=== PATIENT | female | born 1970 | race African-American/Black ===

== ENCOUNTER → 2018-08-31 11:09 | Outpatient (CLI) | payer OTHER, SELFPAY ==
--- NOTE | 2018-08-31 | DI.RAD.S_ITS ---
PROCEDURE: FL ARTHROGRAM SHOULDER RT INDICATIONS: RIGHT SHOULDER PAIN TECHNIQUE: The indications, alternatives, benefits, risks, and complications of the procedure were explained to the patient. Written informed consent was obtained and placed in the chart. The shoulder was examined fluoroscopically and a site for needle placement chosen for entry into the glenohumeral joint from an anterior approach. The skin was prepped and draped in a sterile fashion, and 1% lidocaine infiltrated from skin down to joint capsule. A spinal needle was inserted into the glenohumeral joint, and a small amount of iodinated contrast media injected to confirm intra-articular placement of the needle tip. This was followed by approximately 12 mL dilute solution of a gadolinium containing MR contrast agent. The needle was removed and a dressing was applied. The patient was given postprocedural instructions and sent to the MR suite for MR imaging. FINDINGS: A single fluoroscopic spot image demonstrates intra-articular location of injected iodinated contrast. IMPRESSION: Successful fluoroscopically guided administration of dilute Gadolinium solution into the shoulder joint for MR arthrogram. Dictated by: Teofilo Das M.D. on 08/31/2018 at 13:04 Approved by: Teofilo Das M.D. on 08/31/2018 at 13:04
--- NOTE | 2018-08-31 | DI.MRI.S_ITS ---
PROCEDURE: MR SHOULDER RT W CON INDICATIONS: RT SHOULDER PAIN TECHNIQUE: After the administration of 12 mL of dilute intra-articular Gadolinium contrast, oblique coronal T1 and T2 spin echo with fat saturation, oblique sagittal T1 spin echo with and without fat saturation, oblique sagittal T2 fast spin echo with fat saturation, axial T1 spin echo with fat saturation through the shoulder. COMPARISON: [facility], MR, SHOULDER WITH CONTRAST, 08/16/2017, 14:01. FINDINGS: Image quality: Diagnostic. Rotator cuff: No full-thickness or high-grade partial-thickness tear of the rotator cuff is identified. There is minimal supraspinatus and infraspinatus tendinopathy without significant tendon. There is a low-grade partial-thickness tear identified near the myotendinous junction along the superior fibers of the distal subscapularis tendon with focal tendinopathy. Subscapular tendon is otherwise unremarkable. The teres minor tendon is intact. There is no significant atrophy of the rotator cuff muscles. Bones and bursae: No acute fracture or dislocation is present. There are no suspicious osseous lesions. There may be early degenerative changes of the glenohumeral joint, best appreciated on the posterior margin of the greater tuberosity of the humeral head. Mild posterior subluxation of the humeral head with respect to the glenoid is present. There is adequate distention of the glenohumeral joint with the injected contrast. No definite loose intra-articular joint bodies are appreciated. None of the injected contrast extends into the subacromial subdeltoid bursa to suggest nonvisualized full-thickness tear of the rotator cuff. Moderate degenerative changes of the acromioclavicular joint are present. There is mild downsloping of the lateral acromion. Capsule and soft tissues: There is a small posterosuperior labral tear identified at that extends from the 12 o'clock position to the 2 o'clock position. The labrum is otherwise unremarkable. The long head of the biceps tendon is normally positioned within the bicipital groove and appears to be intact and is otherwise unremarkable. The superior, middle, and inferior glenohumeral ligaments are intact. IMPRESSION: 1. Low-grade intrasubstance partial thickness tearing at the superior subscapularis myotendinous junction with corresponding mild focal tendinopathy. No full thickness tear of the rotator cuff. 2. Minimal supraspinatus and infraspinatus tendinopathy. 3. Small posterosuperior labral tear without definite involvement of the biceps anchor. 4. Moderate degenerative changes of the acromioclavicular joint. Dictated by: Vito Rey M.D. on 08/31/2018 at 14:35 Approved by: Vito Rey M.D. on 08/31/2018 at 14:39
== END ==
PROVIDERS: Visit Provider Physician Assistant
DX: M25.511 Pain in right shoulder (principal); M75.111 Incomplete rotator cuff tear or rupture of right shoulder, not specified as traumatic; M19.011 Primary osteoarthritis, right shoulder; S43.491A Other sprain of right shoulder joint, initial encounter
CPT/HCPCS: 23350; 73040; 73222; 77002

== ENCOUNTER → 2019-05-11 11:42 | Outpatient (CLI) | payer OTHER, SELFPAY ==
--- NOTE | 2019-05-11 | DI.MRI.S_ITS ---
PROCEDURE: MR ANKLE RT WO CON INDICATIONS: RIGHT ANKLE PAIN TECHNIQUE: Noncontrast sagittal T1 spin echo and T2 fast spin echo with fat saturation, axial proton density fast spin echo and T2 fast spin echo with fat saturation, coronal T1 spin echo and T2 fast spin echo with fat saturation through the ankle/hindfoot. COMPARISON: None. FINDINGS: Image quality: Diagnostic. Bones and joints: No acute fracture, dislocation, or suspicious osseous lesion is identified involving the osseous structures of the right midfoot or hindfoot. Ankle mortise is well-maintained. There are no osteochondral defects involving the tibial plafond toward the talar dome. There mild degenerative changes of the talonavicular joint. No significant joint effusions are appreciated. Medial structures: The deltoid and spring ligaments are intact. Thickening involving the superomedial band of the spring ligament is present at the plantar components of the spring ligament are intact. The tibialis posterior, flexor digitorum longus, and flexor hallucis longus tendons are intact. Small fluid is contained within their corresponding tendon sheaths. There is mild increased signal involving the distal aspect of the tibialis posterior tendon near the level of the navicular with overlying soft tissue edema. The posterior tibial nerve through the tarsal tunnel appears to be within normal limits. Lateral structures: The anterior and posterior distal tibiofibular ligaments are intact. The anterior and posterior talofibular ligaments are intact. The calcaneofibular ligament is also intact. The peroneus brevis and peroneus longus tendons are intact. However, there is minimal fluid identified within their corresponding tendon sheath along the posterior margin of the lateral malleolus. Slight increased signal is noted within the region of the sinus tarsi. Anterior structures: The tibialis anterior, extensor hallucis longus, and extensor digitorum longus tendons appear intact. The dorsal talonavicular ligament appears intact. Posterior and plantar structures: The Achilles tendon is intact, but demonstrates mild increased signal next insertion. The plantar fascia is within normal limits. IMPRESSION: 1. Mild peroneus longus tendinopathy with corresponding minimal tenosynovitis. 2. Probable scarring of the spring ligament. A superimposed acute sprain is difficult to exclude. No full-thickness tears. 3. Minimal tenosynovitis involving the peroneus longus and previous brevis tendons. 4. Mild distal Achilles tendinopathy. 5. Mild degenerative changes of the talonavicular joint. 6. Nonspecific increased signal within the sinus tarsi may be within normal limits. Please correlate clinically to exclude sinus tarsi syndrome. Dictated by: Vito Rey M.D. on 05/13/2019 at 10:07 Approved by: Vito Rey M.D. on 05/13/2019 at 10:24
== END ==
PROVIDERS: PCP Family Medicine; Visit Provider Family Medicine
DX: M25.571 Pain in right ankle and joints of right foot (principal); M67.971 Unspecified disorder of synovium and tendon, right ankle and foot
CPT/HCPCS: 73721

== ENCOUNTER → 2019-10-18 12:35 | Outpatient (CLI) | payer OTHER, SELFPAY ==
--- NOTE | 2019-10-18 | DI.US.S_ITS ---
ULTRASOUND OF RIGHT BREAST: 10/18/2019 CLINICAL: Diffuse left breast pain. Comparison is made to exams dated: 10/18/2019 mammogram - [facility], 09/09/2019 ultrasound, 06/14/2018 ultrasound, and 06/14/2018 mammogram - [facility]. Real-time ultrasound of the right breast was performed. Novoa scale images of the real-time examination were reviewed. No significant abnormalities were seen sonographically in the right breast. IMPRESSION: NEGATIVE There is no sonographic evidence of malignancy. There is no abnormality seen in the right axilla to correspond with the area of clinical concern and palpable abnormality indicated by triangular marker in the axilla, however, clinical followup is recommended for persistent or worsening symptoms. A 1 year screening mammogram is recommended. This exam was interpreted at Station ID: [id number]. Electronically Signed By: Rodrigue Mcdonald M.D. aty/:10/18/2019 14:26:31 letter sent: Normal Exam Ultrasound BI-RADS: 1 Negative
--- NOTE | 2019-10-18 | DI.MG.S_ITS ---
BILATERAL DIGITAL DIAGNOSTIC MAMMOGRAM 3D/2D: 10/18/2019 CLINICAL: Right breast pain. Left nipple pain. Comparison is made to exams dated: 06/14/2018 mammogram, 05/11/2017 mammogram, and 11/30/2016 mammogram - [facility]. The tissue of both breasts is heterogeneously dense. This may lower the sensitivity of mammography. No significant masses, calcifications, or other findings are seen in either breast. IMPRESSION: INCOMPLETE: NEEDS ADDITIONAL IMAGING EVALUATION There is no abnormality seen in the right axilla to correspond with the area of clinical concern, palpable abnormality, and pain indicated by triangular marker in the right axilla, however, ultrasound is recommended. There is no abnormality seen in the left breast to correspond with the area of clinical concern, palpable abnormality, and pain indicated by square marker in the sub-areolar depth, however, ultrasound is recommended. The recommended breast ultrasound is scheduled to immediately follow this examination. This exam was interpreted at Station ID: [id number]. NOTE: For mammograms, a report in lay terms will be sent to the patient. Approximately 15% of breast malignancies will not be visualized mammographically. In the management of a palpable breast mass, a negative mammogram must not discourage biopsy of a clinically suspicious lesion. Electronically Signed By: Rodrigue Mcdonald M.D. aty/:10/18/2019 13:41:10 ACR BI-RADS Category 0: Incomplete 3340F
--- NOTE | 2019-10-18 | DI.US.S_ITS ---
ULTRASOUND OF LEFT BREAST: 10/18/2019 CLINICAL: Focal left breast pain. Comparison is made to exams dated: 10/18/2019 mammogram - [facility], 09/09/2019 ultrasound, 06/14/2018 ultrasound, 06/14/2018 mammogram, 05/11/2017 mammogram, and 11/30/2016 mammogram - [facility]. Real-time ultrasound of the left breast was performed. Novoa scale images of the real-time examination were reviewed. No significant abnormalities were seen sonographically in the left breast. IMPRESSION: NEGATIVE There is no sonographic evidence of malignancy. There is no abnormality seen in the left breast to correspond with the area of clinical concern, palpable abnormality, and pain indicated by square marker in the sub-areolar depth, however, clinical followup is recommended for persistent or worsening symptoms. A 1 year screening mammogram is recommended. This exam was interpreted at Station ID: [id number]. Electronically Signed By: Rodrigue Mcdonald M.D. aty/:10/18/2019 14:25:12 letter sent: Normal Exam Ultrasound BI-RADS: 1 Negative
== END ==
PROVIDERS: PCP Internal Medicine; Referring Provider Internal Medicine; Visit Provider Internal Medicine
DX: R92.8 Other abnormal and inconclusive findings on diagnostic imaging of breast (principal); N64.4 Mastodynia
CPT/HCPCS: 76642; 77066; G0279

== ENCOUNTER → 2020-10-24 12:28 | Outpatient (CLI) | payer OTHER, SELFPAY ==
--- NOTE | 2020-10-24 12:30 | DI.MG.S_ITS ---
BILATERAL DIGITAL SCREENING MAMMOGRAM 3D/2D WITH CAD: 10/24/2020 CLINICAL: Routine screening. Family history of breast cancer. Comparison is made to exams dated: 10/18/2019 mammogram - [facility], 06/14/2018 mammogram, 05/11/2017 mammogram, and 11/30/2016 mammogram - [facility]. The tissue of both breasts is heterogeneously dense. This may lower the sensitivity of mammography. Current study was also evaluated with a Computer Aided Detection (CAD) system. No significant masses, calcifications, or other findings are seen in either breast. There has been no significant interval change. IMPRESSION: NEGATIVE There is no mammographic evidence of malignancy. A 1 year screening mammogram is recommended. This exam was interpreted at Station ID: [id number]. NOTE: For mammograms, a report in lay terms will be sent to the patient. Approximately 15% of breast malignancies will not be visualized mammographically. In the management of a palpable breast mass, a negative mammogram must not discourage biopsy of a clinically suspicious lesion. Electronically Signed By: Petros barlow/sahra:10/26/2020 08:53:56 letter sent: Normal Exam ACR BI-RADS Category 1: Negative 3341F
== END ==
PROVIDERS: PCP Internal Medicine; Referring Provider Internal Medicine; Visit Provider Internal Medicine
DX: Z12.31 Encounter for screening mammogram for malignant neoplasm of breast (principal); Z80.3 Family history of malignant neoplasm of breast
CPT/HCPCS: 77063; 77067

== ENCOUNTER → 2020-12-03 08:07 | Outpatient (CLI) | payer OTHER, SELFPAY ==
--- NOTE | 2020-12-03 | DI.MRI.S_ITS ---
PROCEDURE: MR CERVICAL SPINE WO CON INDICATIONS: Other disturbances of skin sensation TECHNIQUE: Noncontrast sagittal T1 spin echo and T2 fast spin echo, sagittal STIR, foraminal oblique sagittal T2 fast spin echo, and axial gradient echo or T2 fast spin echo through the cervical spine. COMPARISON: None. FINDINGS: Image quality: Excellent. Alignment and Curvature: There is normal bony alignment. Bone Marrow: Marrow demonstrates normal overall signal. Spinal Cord: Visualized spinal cord has normal size and signal. No cerebellar tonsillar herniation. Regional Soft Tissues: No paravertebral masses. Prevertebral soft tissues are normal in thickness. C2-C3: Normal appearance. C3-C4: Normal appearance. C4-C5: Normal appearance. C5-C6: Normal appearance. C6-C7: Normal appearance. C7-T1: Normal appearance. IMPRESSION: Unremarkable MRI of the cervical spine. No significant degenerative findings, spinal canal stenosis, or neural foraminal stenosis. Dictated by: David Saenz M.D. on 12/03/2020 at 9:40 Approved by: David Saenz M.D. on 12/03/2020 at 9:45
== END ==
PROVIDERS: PCP Internal Medicine; Referring Provider Internal Medicine; Visit Provider Internal Medicine
DX: R20.8 Other disturbances of skin sensation (principal)
CPT/HCPCS: 72141

== ENCOUNTER → 2021-08-02 11:20 | Outpatient (CLI) | payer OTHER, SELFPAY ==
[2021-08-02 14:09] LABS: COVID19 -Nasal RAPID Negative (Negative)
== END ==
PROVIDERS: PCP Internal Medicine; Visit Provider Nurse Practitioner Family
DX: Z20.822 Contact with and (suspected) exposure to COVID-19 (principal)
CPT/HCPCS: 87635

== ENCOUNTER 2021-08-03 07:54 | Day surgery (SDC) | payer OTHER, SELFPAY ==
[2021-08-03 08:25] VITALS: BP 125/80; PULSE 91; RESP 16; TEMP 36.7; O2SAT 100; BMI 40.0
[2021-08-03] MEDS: SODIUM CHLORIDE 0.9% 1,000 ML 100 ML IV (08:32)
--- NOTE | 2021-08-03 08:41 | PM.HP.1 ---
History of Present Illness History of Present Illness Date Patient Seen: 08/03/21 Time Patient Seen: 08:42 Chief complaint: SDC Patient History Family & Social History Social History: household members children Tobacco & Substance use: Smoking Status Never smoker alcohol intake current alcohol intake frequency a few times a month Substance Use Type does not use Meds Home Medications and Allergies Home Medications Medication Instructions Recorded Confirmed Type No Known Home Medications 08/03/21 08/03/21 History Allergies Allergy/AdvReac Type Severity Reaction Status Date / Time No Known Allergies Allergy Uncoded 08/03/21 08:09 Review of Systems Review of Systems ROS: Yes All systems reviewed with the patient and are negative except as otherwise documented Exam Vital Signs (past 8 hours): - 08/03/21 08:25 Temperature 98.0 F Pulse Rate 91 H Respiratory Rate 16 Blood Pressure 125/80 Pulse Oximetry 100 Oxygen Delivery Method Room Air Const General: cooperative and comfortable Orientation: alert HENMT Head: normocephalic Ears: external ears normal Nose: external nose normal Face and sinus: normal facial exam Mouth: oral mucosae normal Eyes General: appearance normal, both eyes and all related structures Neck Neck: normal visual inspection Chest Chest: normal inspection of the chest Resp Effort & Inspection: normal respiratory effort Cardio Rate: regular rate GI Inspection: normal to inspection Palpation: soft and No tender Auscultation: normal bowel sounds Skin General: no rashes or lesions noted and No jaundice Neuro General: patient alert and moves all extremities Cognition: normal cognition Speech: speech normal Extrem General: no pedal edema Psych Appearance: grossly normal Assessment & Plan Time Spent With Patient Critical Care time: I spent a total of [] minutes of critical care time on this patient's care today; this time is exclusive of procedural time.
--- NOTE | 2021-08-03 08:43 | PM.PREOP ---
Pre-operative Note COVID-19 COVID-19 status: Negative Result date/Date tested (Pos, Neg/Pending): 08/02/21 Interval Note History & Physical reviewed/Exam performed by Physician: Yes Changes to H&P: No H&P completed within 30 days and has changed as indicated here:: Today ASA Class (for procedural sedation): II
--- NOTE | 2021-08-03 09:44 | PM.OP.COLON ---
Operative Date/Time/Diagnoses Date of procedure: 08/03/21 Time of procedure: 09:44 Pre-op diagnosis: Family history of colon cancer Post-op diagnosis: same Procedure & Clinicians Study performed: Colonoscopy Same procedure as scheduled: Yes Indications: Family history of colon cancer Surgeon: Luther Brower Procedure Notes SCOAP/Timeout: Done Procedure in detail: After the risks and benefits were explained, written and verbal informed consent was obtained. The patient was brought into the procedure room and placed into the left lateral decubitus position. Please see nurse blocker automatic sedation notes. Digital rectal examination was accomplished. The scope was introduced into the patient and advanced under direct visualization to the cecum as identified by the appendiceal orifice and ileocecal valve. The scope was slowly withdrawn to carefully examine the mucosa for any defects or lesions. Comprehensive imaging was accomplished throughout the rectum including the dentate line. The colon was decompressed, the scope was then removed from the patient who tolerated the procedure well. Bowel prep adequate Adult colonoscope Scope withdrawal time: 7 minutes Sedation minutes: 13 Specimen(s): none sent Complications: none Impression: No significant polyps mass lesions or inflammatory features identified throughout. Endoscopic diagnosis Visually normal colonoscopy to cecum Post-procedure Recommendations: Colonoscopy in 5 years Plan for aftercare: Considering family history, repeat colonoscopy 5 years. Disposition: PACU
[2021-08-03 09:46] VITALS: BP 112/79; PULSE 85; RESP 22; TEMP 36.8; O2SAT 100
[2021-08-03 09:53] VITALS: BP 110/67; PULSE 89; RESP 20; O2SAT 100
[2021-08-03 09:55] VITALS: BP 112/62; PULSE 92; RESP 19; O2SAT 100
[2021-08-03 10:03] VITALS: BP 105/65; PULSE 86; RESP 19; TEMP 36.3; O2SAT 100
== END 2021-08-03 10:14 | disposition home or self-care (01) ==
PROVIDERS: PCP Internal Medicine; Referring Provider Internal Medicine Gastroenterology; Visit Provider Internal Medicine Gastroenterology
PROC: 0DJD8ZZ Inspection of Lower Intestinal Tract, Via Natural or Artificial Opening Endoscopic (ICD-10-PCS; CPT 45378; principal; 2021-08-03 09:00)
DX: Z12.11 Encounter for screening for malignant neoplasm of colon (principal); Z80.0 Family history of malignant neoplasm of digestive organs
CPT/HCPCS: 45378; J2250; J2704

== ENCOUNTER → 2021-08-13 14:15 | Outpatient (CLI) | payer OTHER, SELFPAY ==
--- NOTE | 2021-08-13 | DI.MRI.S_ITS ---
PROCEDURE: MR THORACIC SPINE WO CON INDICATIONS: Left upper quadrant pain TECHNIQUE: Noncontrast sagittal T1 spine echo and T2 fast spin echo, sagittal STIR, axial T1 and T2 fast spin echo through the thoracic spine. COMPARISON: None. FINDINGS: Image quality: Excellent. Alignment and Curvature: There is normal bony alignment. Bone Marrow: Marrow is of normal overall signal. No acute vertebral body compression fractures. Spinal Cord: Visualized spinal cord is normal in size and signal. Paraspinous Soft Tissues: No paravertebral masses. Miscellaneous: On axial images, central canal and foramina appear widely patent at all scanned levels. IMPRESSION: Normal thoracic spine MRI. Dictated by: David Saenz M.D. on 08/13/2021 at 15:37 Approved by: David Saenz M.D. on 08/13/2021 at 15:39
== END ==
PROVIDERS: PCP Internal Medicine; Referring Provider Internal Medicine; Visit Provider Internal Medicine
DX: R10.12 Left upper quadrant pain (principal)
CPT/HCPCS: 72146

== ENCOUNTER → 2022-01-17 09:16 | Outpatient (CLI) | payer OTHER, SELFPAY ==
--- NOTE | 2022-01-17 | DI.MG.S_ITS ---
BILATERAL DIGITAL DIAGNOSTIC MAMMOGRAM 3D/2D: 01/17/2022 CLINICAL: Diffuse left breast pain. Due for routine. Comparison is made to exams dated: 10/24/2020 mammogram, 10/18/2019 mammogram - [facility], and 06/14/2018 mammogram - [facility]. The tissue of both breasts is heterogeneously dense. This may lower the sensitivity of mammography. No significant masses, calcifications, or other findings are seen in either breast. Specifically, no finding to explain the patient's pain. Mammograms are stable. There is an incidental benign, oval asymmetry with an obscured and circumscribed margin in the right breast at 1 o'clock posterior depth. 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 IMPRESSION: BENIGN There is no abnormality seen in the left breast to correspond with the diffuse pain which is consistent with normal fibroglandular tissue. There is no mammographic evidence of malignancy. Return to annual mammogram screening schedule is recommended. Findings and recommendations were conveyed to the patient at time of exam. This exam was interpreted at Station ID: [id number]. NOTE: For mammograms, a report in lay terms will be sent to the patient. Approximately 15% of breast malignancies will not be visualized mammographically. In the management of a palpable breast mass, a negative mammogram must not discourage biopsy of a clinically suspicious lesion. Electronically Signed By: Sushma solano/:01/17/2022 10:05:55 letter sent: Normal Exam ACR BI-RADS Category 2: Benign Finding(s) 3342F
== END ==
LOC: MAMMO 09:17
PROVIDERS: PCP Internal Medicine; Referring Provider Nurse Practitioner Family; Visit Provider Nurse Practitioner Family
DX: N64.4 Mastodynia (principal)
CPT/HCPCS: 77066; G0279

== ENCOUNTER → 2022-11-22 07:35 | Outpatient (CLI) | payer OTHER, SELFPAY ==
--- NOTE | 2022-11-22 | DI.MRI.S_ITS ---
PROCEDURE: MR SHOULDER RT WO CON INDICATIONS: Pain in right shoulder TECHNIQUE: Noncontrast oblique coronal T2 fast spin echo with fat saturation, oblique sagittal T1 spin echo and T2 fast spin echo with fat saturation, axial T1 spin echo and T2 fast spin echo with fat saturation through the shoulder. COMPARISON: None. FINDINGS: Image quality: Excellent. Rotator cuff: There is mild T2 signal elevation diffusely throughout the supraspinatus and infraspinatus tendons at the humeral insertion sites extending to the musculotendinous junctions, indicating tendinopathy. Superimposed low-grade bursal surface fraying of the mid and posterior supraspinatus as well as the mid/anterior infraspinatus tendon at the humeral insertion site extending the musculotendinous junction. Subscapularis and teres minor tendons are intact. No rotator cuff atrophy. Bones and bursae: No bone marrow contusions or fractures. Mild acromioclavicular joint degeneration. The acromion demonstrates conventional anatomy, without an os acromiale. No pathologic subacromial-subdeltoid or subcoracoid bursal fluid is present. Capsule and soft tissues: Labrum is grossly intact The long head of the biceps tendon demonstrates normal location and morphology. The rotator interval appears normal, without fibrosis. The coracohumeral ligament is normal in thickness. IMPRESSION: 1. Supraspinatus and infraspinatus tendinopathy with superimposed low-grade bursal surface fraying. No full-thickness rotator cuff tearing. 2. Acromioclavicular joint osteoarthritis. Dictated by: Yuli Melvin M.D. on 11/22/2022 at 8:39 Approved by: Yuli Melvin M.D. on 11/22/2022 at 8:40
== END ==
PROVIDERS: PCP Nurse Practitioner Family; Referring Provider Nurse Practitioner Family; Visit Provider Nurse Practitioner Family
DX: M19.011 Primary osteoarthritis, right shoulder (principal); M25.511 Pain in right shoulder; G54.9 Nerve root and plexus disorder, unspecified; D17.22 Benign lipomatous neoplasm of skin and subcutaneous tissue of left arm
CPT/HCPCS: 73221; 99212; G0463

== ENCOUNTER 2023-08-22 16:55 | Emergency (ER) | payer OTHER, SELFPAY ==
[2023-08-22 16:59] VITALS: BP 137/78; PULSE 90; RESP 18; TEMP 36.6; O2SAT 99; BMI 40.9
--- NOTE | 2023-08-22 17:20 | ED.DENTAL ---
HPI - Dental/Oral <Naseem Holland PA-C - Last Filed: 08/22/23 21:18> General Chief complaint: Dental/Oral Stated complaint: Face is tingling/ pain and swelling in neck Time Seen by Provider: 08/22/23 17:10 Source: patient Mode of arrival: Ambulatory History of Present Illness HPI Narrative: This is a 53-year-old female presents emergency department due to 3 days of numbness to the left side corner of her mouth as well as pain intermittent episodes of pain to her left cheek radiating to her left ear. She reports some nausea this morning but denies any vomiting. Denies any slurred speech, weakness, headaches, facial drooping, episodes of amnesia, or any other concerning signs or symptoms. She denies any trauma to the area. Denies any difficulty breathing or swallowing. Related Data Home Medications Medication Instructions Recorded Confirmed ascorbic acid (vitamin C) 500 mg 500 mg PO DAILY 11/22/22 11/22/22 tablet cholecalciferol (vitamin D3) 25 25 mcg PO DAILY 11/22/22 11/22/22 mcg (1,000 unit) capsule magnesium glycinate mg PO 11/22/22 11/22/22 mecobalamin (vitamin B12) 500 mcg mcg PO 11/22/22 11/22/22 chewable tablet multivitamin 1 tab PO DAILY 11/22/22 11/22/22 phentermine 3.75 mg-topiramate ER 1 cap PO DAILY 11/22/22 11/22/22 23 mg capsule,ext.release 24hr mphas Previous Rx's Medication Instructions Recorded carbamazepine 200 mg tablet 200 mg PO BID #28 tabs 08/22/23 Allergies Allergy/AdvReac Type Severity Reaction Status Date / Time No Known Allergies Allergy Uncoded 11/22/22 09:11 Review of Systems <Naseem Holland PA-C - Last Filed: 08/22/23 21:18> Review of Systems Narrative: GENERAL: Denies chills, fatigue, malaise, fever, sweats. HEENT: Left facial numbness and occasional pain Denies sinus pain, ear pain, sore throat, difficulty swallowing, dizziness. RESPIRATORY: Denies dyspnea, cough, wheezing, hemoptysis, sputum. CARDIOVASCULAR: Denies chest pain, palpitations, orthopnea, edema, GASTROINTESTINAL: Denies nausea, vomiting, abdominal pain, diarrhea, constipation, melena. : Denies dysuria, frequency, incontinence, hematuria, urinary retention. MUSCULOSKELETAL: denies weakness, joint pain, or bony pain SKIN: Denies rash, skin lesions, or other NEUROLOGIC: Denies weakness, headache, numbness, change in speech, confusion, seizures, incoordination. PSYCHIATRIC: No concerning psychosocial issues. 12 point review of systems is negative except for those stated above Patient History <Naseem Holland PA-C - Last Filed: 08/22/23 21:18> Surgical History History of partial hysterectomy Hx of section Social History household members: children Smoking Status: Never smoker alcohol intake: current Smoking Status: Never smoker alcohol intake frequency: a few times a month Substance Use Type: does not use Exam <Naseem Holland PA-C - Last Filed: 08/22/23 21:18> Narrative Exam Narrative: GENERAL: Well-developed patient, in mild distress. HEAD: Atraumatic. Normocephalic. EYES: Pupils equal round and reactive. Extraocular motions intact. No scleral icterus. No injection or drainage. ENT: Nose without bleeding, purulent drainage. Throat without erythema, tonsillar hypertrophy or exudate. Airway patent. NECK: Trachea midline. Non tender CARDIOVASCULAR: Regular rate and rhythm without murmurs, gallops, or rubs. RESPIRATORY: Clear to auscultation. Breath sounds equal bilaterally. No wheezes, rales, or rhonchi. GASTROINTESTINAL: Abdomen soft, non-tender, nondistended. EXTREMITIES: No edema or joint tenderness. BACK: Nontender without deformity or crepitance. No flank tenderness. NEURO: AOx3. Cranial nerves 2-12 intact. SKIN: No rash or erythema of visible areas Initial Vital Signs Initial Vital Signs: Vital Signs Temperature 98 F 08/22/23 16:59 Pulse Rate 90 08/22/23 16:59 Respiratory Rate 18 08/22/23 16:59 Blood Pressure 137/78 08/22/23 16:59 Pulse Oximetry 99 08/22/23 16:59 Oxygen Delivery Method Room Air 08/22/23 16:59 <Michael Tavarez DO - Last Filed: 08/22/23 22:12> Initial Vital Signs Initial Vital Signs: Vital Signs Temperature 98 F 08/22/23 16:59 Pulse Rate 90 08/22/23 16:59 Respiratory Rate 18 08/22/23 16:59 Blood Pressure 137/78 08/22/23 16:59 Pulse Oximetry 99 08/22/23 16:59 Oxygen Delivery Method Room Air 08/22/23 16:59 Course <Naseem Holland PA-C - Last Filed: 08/22/23 21:18> Orders Ordered: ED Orders 08/22/23 18:15 CT head/brain wo con Stat 08/22/23 18:30 CRP [C-Reactive Protein Quant] Stat ESR [Erythrocyte Sedimentation Rate] Stat Vital Signs Vital signs: Vital Signs - 8 hr 08/22/23 16:59 08/22/23 19:34 Temperature 98 F Pulse Rate 90 81 Respiratory Rate 18 16 Blood Pressure 137/78 123/64 Pulse Oximetry 99 100 Oxygen Delivery Method Room Air Room Air <Michael Tavarez DO - Last Filed: 08/22/23 22:12> Orders Ordered: ED Orders 08/22/23 18:15 CT head/brain wo con Stat 08/22/23 18:30 CRP [C-Reactive Protein Quant] Stat ESR [Erythrocyte Sedimentation Rate] Stat Vital Signs Vital signs: Vital Signs - 8 hr 08/22/23 16:59 08/22/23 19:34 Temperature 98 F Pulse Rate 90 81 Respiratory Rate 18 16 Blood Pressure 137/78 123/64 Pulse Oximetry 99 100 Oxygen Delivery Method Room Air Room Air MDM - Dental/Oral <Naseem Holland PA-C - Last Filed: 08/22/23 21:18> Lab Data Labs: Lab Results 08/22/23 Range/Units 18:30 ESR 25 H (0-20) MM/HR C-Reactive Protein 0.7 (<1.0) mg/dL Imaging Data CT scan - head: Radiologist's Impression: [address] [address] [address] Scan Report Signed Patient: Bonita Baca MR#: [id number] : 1970 Acct:[id number] Age/Sex: 53 / F Date of Service: 08/22/23 Loc: ED Accession Number: [id number] Procedure: CT head/brain wo con Ordering Provider: Naseem Holland P.A-C PROCEDURE: CT HEAD/BRAIN WO CON INDICATIONS: left sided facial numbness TECHNIQUE: Noncontrast 4.5 mm thick angled axial sections acquired from the foramen magnum to the vertex, with coronal and sagittal reformats. For radiation dose reduction, the following was used: automated exposure control, adjustment of mA and/or kV according to patient size. COMPARISON: None. FINDINGS: Image quality: There is artifact associated with the metallic earrings. Mild streak artifact can be seen through the skull base. CSF spaces: Basal cisterns are patent. No extra-axial fluid collections. Ventricles are normal in size and shape. Brain: No midline shift. No intracranial masses or hemorrhage. Novoa-white matter interface is normal. Skull and face: Calvarium and visualized facial bones are intact, without suspicious lesions. Sinuses: Visualized sinuses and mastoids are clear. IMPRESSION: No imaging explanation is found for this patient's presenting symptoms. If it would be helpful for clinical management decision making, please consider a dedicated, scheduled brain (without and with contrast) MRI for further evaluation (assuming that there is no contraindication). Dictated by: Varun Castaneda M.D. on 08/22/2023 at 17:39 Approved by: Varun Castaneda M.D. on 08/22/2023 at 17:40 [facility] Narrative Medical decision making narrative: MDM * differential diagnosis includes but not limited to herpes zoster, trigeminal neuralgia, Iglesias's palsy, intracranial bleed * Prior records reviewed:Patient has not been to this emergency department in the past. * My lab interpretation: ESR slightly elevated although not elevated enough for a diagnosis of giant cell arteritis. CRP within normal limits. * My imgaing interpretation: CT head unremarkable * Clinical Decision Rules/Scores evaluated: None * Independent discussions with: None ED Course: This is a 53-year-old female presents emergency department due to left facial tingling with occasional episodes of pain. CT head unremarkable. ESR slightly elevated but not elevated high enough for diagnosis of giant cell arteritis. CMP unremarkable. She did not present with any other neuro deficits and low concern for TIA or intracranial bleed. We will treat for possible trigeminal neuralgia with carbamazepine. Instructed to follow up with primary care provider for further evaluation testing if symptoms continue. No lesions to the external auditory canal or TM concerning for herpes zoster. Shared Decision Making: Discussed plan with the patient was comfortable with the plan. Social Considerations: None Disposition: Discharged to home <Michael Tavarez DO - Last Filed: 08/22/23 22:12> Lab Data Labs: Lab Results 08/22/23 Range/Units 18:30 ESR 25 H (0-20) MM/HR C-Reactive Protein 0.7 (<1.0) mg/dL Discharge Plan Departure Patient Disposition: Home Clinical Impression: Facial tingling Activity Restrictions/Additional Instructions: Thank you for coming to the [facility] Emergency Department today. Your CT head was unremarkable. There was no evidence of intracranial bleeding or any other masses. Your lab work today was also reassuring. Please take the oral medications. This maybe something called trigeminal neuralgia. Please take the oral medications as prescribed to see if it helps with the symptoms. I recommended follow up with the primary care provider further testing and management if your symptoms continue. I hope you feel better soon. Please follow up with your primary care provider within a week if your symptoms continue. If you do not have a primary care provider please contact the [facility] Resource line at [phone]. They will ask some questions about your medical history and help you get set up with a provider in the community. Prescriptions: New carbamazepine 200 mg tablet 200 mg PO BID Qty: 28 0RF No Action cholecalciferol (vitamin D3) 25 mcg (1,000 unit) capsule 25 mcg PO DAILY magnesium glycinate 100 mg magnesium capsule PO multivitamin Tablet 1 tab PO DAILY mecobalamin (vitamin B12) 500 mcg tablet,chewable PO ascorbic acid (vitamin C) 500 mg tablet 500 mg PO DAILY phentermine-topiramate 3.75-23 mg capsule, ER multiphase 24 hr 1 cap PO DAILY Referrals: Sabi Watson ARNP [Primary Care Provider] - Stand Alone Forms: Patient Portal/API ED Sign-out <Michael Tavarez DO - Last Filed: 08/22/23 22:12> Cosign ED Attending Cosignature Attestation: Dr Tavarez Co-Sign Statement: I was available for consultation during this patient's emergency department visit. This chart is signed by myself for administrative purposes only. I did not have direct contact with this patient during this visit. They were seen independently by the APC.
--- NOTE | 2023-08-22 18:15 | DI.CT.S_ITS ---
PROCEDURE: CT HEAD/BRAIN WO CON INDICATIONS: left sided facial numbness TECHNIQUE: Noncontrast 4.5 mm thick angled axial sections acquired from the foramen magnum to the vertex, with coronal and sagittal reformats. For radiation dose reduction, the following was used: automated exposure control, adjustment of mA and/or kV according to patient size. COMPARISON: None. FINDINGS: Image quality: There is artifact associated with the metallic earrings. Mild streak artifact can be seen through the skull base. CSF spaces: Basal cisterns are patent. No extra-axial fluid collections. Ventricles are normal in size and shape. Brain: No midline shift. No intracranial masses or hemorrhage. Novoa-white matter interface is normal. Skull and face: Calvarium and visualized facial bones are intact, without suspicious lesions. Sinuses: Visualized sinuses and mastoids are clear. IMPRESSION: No imaging explanation is found for this patient's presenting symptoms. If it would be helpful for clinical management decision making, please consider a dedicated, scheduled brain (without and with contrast) MRI for further evaluation (assuming that there is no contraindication). Dictated by: Varun Castaneda M.D. on 08/22/2023 at 17:39 Approved by: Varun Castaneda M.D. on 08/22/2023 at 17:40
[2023-08-22 19:13] LABS: Erythrocyte Sedimentation Rate 25 MM/HR (0-20)
[2023-08-22 19:34] VITALS: BP 123/64; PULSE 81; RESP 16; O2SAT 100
[2023-08-22 19:44] LABS: C-Reactive Protein Quant 0.7 mg/dL (<1.0)
== END 2023-08-22 19:37 | disposition home or self-care (01) ==
PROVIDERS: Emergency Provider Physician Assistant Medical; PCP Nurse Practitioner Family
DX: R20.2 Paresthesia of skin (principal)
CPT/HCPCS: 70450; 85651; 86140; 99281; 99284

== ENCOUNTER → 2023-10-18 08:32 | Outpatient (CLI) | payer OTHER, SELFPAY ==
--- NOTE | 2023-10-18 08:34 | DI.MRI.S_ITS ---
PROCEDURE: MR CERVICAL SPINE WO CON INDICATIONS: PARESTHESIA OF SKIN TECHNIQUE: Noncontrast sagittal T1 spin echo and T2 fast spin echo, sagittal STIR, foraminal oblique sagittal T2 fast spin echo, and axial gradient echo or T2 fast spin echo through the cervical spine. COMPARISON: [facility], MR, MR CERVICAL SPINE WO CON, 12/03/2020, 8:19. FINDINGS: Image quality: Excellent. Alignment and Curvature: There is normal bony alignment. Bone Marrow: Marrow demonstrates normal overall signal. Spinal Cord: Visualized spinal cord has normal size and signal. No cerebellar tonsillar herniation. Paraspinous Soft Tissues: No paravertebral masses. Prevertebral soft tissues are normal in thickness. C2-C3: Normal appearance. C3-C4: Normal appearance. C4-C5: Normal appearance. C5-C6: Normal appearance. C6-C7: Normal appearance. C7-T1: Normal appearance. IMPRESSION: Unremarkable MRI of the cervical spine. No significant degenerative changes. No central canal or neural foraminal stenosis. Dictated by: Kenji Shah M.D. on 10/18/2023 at 10:28 Approved by: Kenji Shah M.D. on 10/18/2023 at 10:30
--- NOTE | 2023-10-18 08:34 | DI.MRI.S_ITS ---
PROCEDURE: MR HEAD/BRAIN WO CON INDICATIONS: PARESTHESIA OF SKIN TECHNIQUE: Noncontrast axial T1 spin echo, axial T2 fast spin echo, sagittal and axial FLAIR, coronal T2 fast spin echo, axial gradient echo, axial diffusion and ADC through the brain. COMPARISON: [facility], MR, MR CERVICAL SPINE WO CON, 10/18/2023, 9:10. [facility], CT, CT HEAD/BRAIN WO CON, 08/22/2023, 18:19. FINDINGS: Image quality: Diagnostic, with note made of motion artifact. CSF Spaces: Basal cisterns are patent. No extra-axial fluid collections. Ventricles are normal in size and shape. Brain: No intracranial masses or hemorrhage. Novoa/white matter interface is normal. A few scattered foci of T2 weighted hyperintensity can be seen, which are largely seen peripherally. No definite involvement of the corpus callosum or brainstem can be seen. No cerebellar lesions are seen. Brainstem appears normal. Diffusion-weighted images demonstrate no acute infarct. No chronic ischemic insults. Normal intravascular flow voids are present. Skull and face: Calvarium has normal marrow signal. Orbits appear normal. Sinuses: Sinuses and mastoids are clear. IMPRESSION: Several scattered foci of T2 weighted hyperintensity can be seen within the white matter, which are largely seen peripherally. Please consider sequelae of migraine headaches, early chronic small vessel ischemic change, as well as multiple sclerosis in a female patient of this age. No findings of acute or subacute infarction can be seen. No prior territorial infarct can be seen. Dictated by: Varun Castaneda M.D. on 10/18/2023 at 10:01 Approved by: Varun Castaneda M.D. on 10/18/2023 at 10:03
== END ==
LOC: MRI 08:33
PROVIDERS: PCP Student in an Organized Health Care Education/Training Program; Referring Provider Student in an Organized Health Care Education/Training Program; Visit Provider Student in an Organized Health Care Education/Training Program
DX: R20.2 Paresthesia of skin (principal)
CPT/HCPCS: 70551; 72141

== ENCOUNTER → 2024-01-08 16:39 | Outpatient (CLI) | payer OTHER, SELFPAY ==
--- NOTE | 2024-01-08 16:40 | DI.US.S_ITS ---
PROCEDURE: US EXTREMELY NONVASC UPPER RT INDICATIONS: Benign lipomatous neoplasm, unspecified TECHNIQUE: Real-time scanning was performed of the posterior right arm , with image documentation. COMPARISON: None. FINDINGS: No fluid collection or mass. No architectural distortion. IMPRESSION: Unremarkable exam. Dictated by: Jacqueline Tejeda M.D. on 01/09/2024 at 12:50 Approved by: Jacqueline Tejeda M.D. on 01/09/2024 at 12:58
== END ==
LOC: US 16:40
PROVIDERS: PCP Student in an Organized Health Care Education/Training Program; Referring Provider Student in an Organized Health Care Education/Training Program; Visit Provider Student in an Organized Health Care Education/Training Program
DX: D17.9 Benign lipomatous neoplasm, unspecified (principal)
CPT/HCPCS: 76882

== ENCOUNTER → 2024-09-11 15:14 | Outpatient (CLI) | payer OTHER, SELFPAY ==
--- NOTE | 2024-09-11 15:15 | DI.US.S_ITS ---
PROCEDURE: US PELVIC COMPLETE INDICATIONS: PCOS TECHNIQUE: Real-time scanning was performed of the pelvic organs, with image documentation. Additional endovaginal scanning was necessary due to incomplete visualization of the adnexal and endometrial structures by transabdominal scanning. COMPARISON: [facility], CT, CT ABDOMEN PELVIS WITH CONTRAST, 12/04/2023, 14:34. FINDINGS: Uterus: Absent Ovaries: Right ovary is absent. Left ovary measures 4 cc. Other: No pathologic free fluid. IMPRESSION: Nonenlarged left ovary, unremarkable by ultrasound. The right ovary and uterus are absent. Dictated by: Shreyas Donovan M.D. on 09/11/2024 at 17:38 Approved by: Shreyas Donovan M.D. on 09/11/2024 at 17:39
== END ==
LOC: US 15:15
PROVIDERS: PCP Student in an Organized Health Care Education/Training Program; Referring Provider Nurse Practitioner Family; Visit Provider Nurse Practitioner Family
DX: E28.2 Polycystic ovarian syndrome (principal); Z90.710 Acquired absence of both cervix and uterus; Z90.721 Acquired absence of ovaries, unilateral
CPT/HCPCS: 76830; 76856

== ENCOUNTER → 2024-09-20 14:23 | Outpatient (CLI) | payer OTHER, SELFPAY ==
[2024-09-23 10:23] LABS: Candida species Negative (Negative); Gardnerella vaginalis Negative (Negative); Trichomoas vaginalis Negative (Negative)
== END ==
PROVIDERS: PCP Student in an Organized Health Care Education/Training Program; Visit Provider Obstetrics & Gynecology
DX: N89.8 Other specified noninflammatory disorders of vagina (principal)
CPT/HCPCS: 87480; 87510; 87660

== ENCOUNTER → 2025-05-09 15:09 | Outpatient (CLI) | payer OTHER, SELFPAY ==
--- NOTE | 2025-05-09 15:11 | DI.MRI.S_ITS ---
PROCEDURE: MR ANKLE LT WO CON INDICATIONS: Pain in ankle TECHNIQUE: Noncontrast sagittal T1 spin echo and T2 fast spin echo with fat saturation, axial proton density fast spin echo and T2 fast spin echo with fat saturation, coronal T1 spin echo and T2 fast spin echo with fat saturation through the ankle/hindfoot. COMPARISON: [facility], MR, MR ANKLE RT WO CON, 05/11/2019, 11:51. FINDINGS: Quality: Adequate Extensor tendons: Unremarkable Medial ankle tendons: Posterior tibialis tendon: Intact. Flexor digitorum longus tendon: Intact. Flexor hallucis longus tendon: Intact. Medial ankle ligaments: Deltoid ligament, superficial and deep: Intact Spring ligaments: Intact. Lateral ankle tendons: Peroneus brevis tendon: Intact. Peroneus longus tendon: Intact. Lateral ankle ligaments: Tibiofibular ligaments: Intact Anterior talofibular ligament: Intact. Posterior talofibular ligament: Intact. Calcaneofibular ligament: Intact. Achilles tendon: Intact. Plantar fascia: Mild edema and increased signal along the proximal plantar fascia at the calcaneal attachment. Sinus tarsi: Unremarkable. Tarsal tunnel: Unremarkable. Cartilage: Subchondral lesion of the medial talar dome with subchondral cysts and marrow edema like signal with no visible overlying cartilage fissuring. Bones: No fracture. Joints: No effusion. Other: None. IMPRESSION: Medial talar dome osteochondral defect versus degenerative change. Acute plantar fasciitis. Dictated by: Stefano Contreras M.D. on 05/09/2025 at 16:57 Approved by: Stefano Contreras M.D. on 05/09/2025 at 17:06
== END ==
LOC: MRI 15:10
PROVIDERS: PCP Student in an Organized Health Care Education/Training Program; Referring Provider Family Medicine; Visit Provider Family Medicine
DX: M72.2 Plantar fascial fibromatosis (principal); M25.572 Pain in left ankle and joints of left foot
CPT/HCPCS: 73721